=== PATIENT | male | born 1960 | race African-American/Black ===

== ENCOUNTER 2018-08-25 09:04 | Emergency (ER) | payer MEDICAID ==
[~2018-08-25] VITALS: Ht 170.2 cm; Wt 92.6 kg
[2018-08-25 09:12] VITALS: BP 150/91
[2018-08-25] MEDS ORDERED: BENA1TAB10 PO (09:43)
== END 2018-08-25 11:04 | disposition home or self-care (01) ==
LOC: ED 10:43
DX: L30.9 Dermatitis, unspecified (principal)
CPT/HCPCS: 99283

== ENCOUNTER 2018-11-11 10:57 | Emergency (ER) | payer MEDICAID ==
[~2018-11-11] VITALS: Ht 170.2 cm; Wt 96.8 kg
[~2018-11-11 10:57] MED LIST: BENA1TAB10 PO
[2018-11-11 11:19] VITALS: BP 130/89
--- NOTE | 2018-11-11 11:45 | NUR ---
RIGHT UPPER DENTAL PAIN SINCE YESTERDAY.
[2018-11-11] MEDS ORDERED: IBUPROFEN 600 MG TABLET PO ONE (12:00)
[2018-11-11] MEDS ORDERED: IBUPROFEN 200 MG TABLET ONE (12:05)
== END 2018-11-11 12:14 | disposition home or self-care (01) ==
LOC: ED 12:03
DX: K08.89 Other specified disorders of teeth and supporting structures (principal)
CPT/HCPCS: 99283

== ENCOUNTER 2019-01-19 13:27 | Emergency (ER) | payer MEDICAID ==
[~2019-01-19] VITALS: Ht 170.2 cm; Wt 99.6 kg
[2019-01-19 13:46] VITALS: BP 175/97
[2019-01-19] MEDS ORDERED: TRIA15CR53 TP (14:21)
== END 2019-01-19 14:59 | disposition home or self-care (01) ==
LOC: ED 14:45
DX: I10 Essential (primary) hypertension (principal); Z76.0 Encounter for issue of repeat prescription
CPT/HCPCS: 99283

== ENCOUNTER 2019-07-02 14:48 | Emergency (ER) | payer MEDICAID ==
[~2019-07-02] VITALS: Ht 170.2 cm; Wt 99.1 kg
[~2019-07-02 14:48] MED LIST changes: +TRIA15CR53 TP
[2019-07-02 15:18] VITALS: BP 128/72
[2019-07-02] MEDS ORDERED: KETOROLAC 30 MG/1 ML ONE (16:20)
[2019-07-02] MEDS ORDERED: KETOROLAC 30 MG/1 ML IM ONE (16:30)
== END 2019-07-02 16:40 | disposition home or self-care (01) ==
LOC: ED 16:34
DX: S93.401A Sprain of unspecified ligament of right ankle, initial encounter (principal); I10 Essential (primary) hypertension; V49.49XA Driver injured in collision with other motor vehicles in traffic accident, initial encounter; Y93.89 Activity, other specified; Y92.89 Other specified places as the place of occurrence of the external cause; Y99.8 Other external cause status
CPT/HCPCS: 29515; 73610; 73630; 96372; 99283; J1885

== ENCOUNTER 2019-09-04 08:58 | Emergency (ER) | payer MEDICAID ==
[~2019-09-04] VITALS: Ht 170.2 cm; Wt 96.0 kg
[2019-09-04 09:09] VITALS: BP 134/70
[2019-09-04] MEDS ORDERED: DIPHENHYDRAMINE 25 MG CAPSULE PO ONE (09:30)
[2019-09-04] MEDS ORDERED: FAMOTIDINE 20 MG TABLET PO ONE (09:30)
[2019-09-04] MEDS ORDERED: FAMOTIDINE 20 MG TABLET ONE (10:01)
[2019-09-04] MEDS ORDERED: DIPHENHYDRAMINE 25 MG CAPSULE ONE (10:01)
== END 2019-09-04 11:16 | disposition home or self-care (01) ==
LOC: ED 11:11
DX: T78.3XXA Angioneurotic edema, initial encounter (principal); I10 Essential (primary) hypertension
CPT/HCPCS: 99284; J7512; Q0163

== ENCOUNTER 2020-03-03 15:27 | Emergency (ER) | payer MEDICAID ==
[~2020-03-03] VITALS: Ht 170.2 cm; Wt 95.1 kg
--- NOTE | 2020-03-03 16:23 | NUR ---
[employer] PRINCIPAL: PT TO ROOM FROM LOBBY.
--- NOTE | 2020-03-03 16:23 | NUR ---
PATIENT TO ROOM FROM LOBBY
[2020-03-03 17:33] VITALS: BP 140/86
--- NOTE | 2020-03-03 17:33 | NUR ---
AWAITING ERP EVAL
[2020-03-03] MEDS ORDERED: KETOROLAC 30 MG/1 ML ONE (18:23)
[2020-03-03] MEDS ORDERED: KETOROLAC 30 MG/1 ML IM ONE (18:30)
== END 2020-03-03 18:48 | disposition home or self-care (01) ==
LOC: ED 16:27
DX: M54.42 Lumbago with sciatica, left side (principal); I10 Essential (primary) hypertension; Z87.891 Personal history of nicotine dependence
CPT/HCPCS: 96372; 99283; J1885; J7512

== ENCOUNTER 2020-03-10 09:07 | Emergency (ER) | payer MEDICAID ==
[~2020-03-10] VITALS: Ht 170.2 cm; Wt 95.5 kg
[2020-03-10 09:10] VITALS: BP 142/101
--- NOTE | 2020-03-10 09:32 | NUR ---
FIRST CONTACT WITH PT. PT C/O LEFT HIP PAIN RADIATING DOWN LEG AND SLIGHT "NUMBNESS" IN TOES AND RIGHT KNEE SWELLING. PT SEEN FOR SIMILAR LAST THURS. PAIN WORSE TODAY AND SWELLING NOW IN RIGHT KNEE. PT DENIES FALL/TRAUMA. PT'S AOX4. RESPS EVEN AND UNLABORED.
--- NOTE | 2020-03-10 11:04 | NUR ---
pt resting in [place]. pt's aox4. resps even and unlabored. pa at bedside to discuss poc. awaiting ct at this time.
== END 2020-03-10 11:57 | disposition home or self-care (01) ==
LOC: ED 09:46
DX: S39.012A Strain of muscle, fascia and tendon of lower back, initial encounter (principal); M25.561 Pain in right knee; M54.32 Sciatica, left side; I10 Essential (primary) hypertension; Z87.891 Personal history of nicotine dependence; X58.XXXA Exposure to other specified factors, initial encounter; Y93.89 Activity, other specified; Y92.89 Other specified places as the place of occurrence of the external cause; Y99.8 Other external cause status
CPT/HCPCS: 99284